=== PATIENT | male | born 2000 | race Caucasian/White ===

== ENCOUNTER → 2024-01-26 12:51 | Outpatient (REF) | payer BC, SELFPAY | LOC: RAD 12:51 | PROVIDERS: ATTENDING PHYSICIAN Radiology Diagnostic Radiology; FAMILY PHYSICIAN Family Medicine | DX: S62.111A Displaced fracture of triquetrum [cuneiform] bone, right wrist, initial encounter for closed fracture (principal); W19.XXXA Unspecified fall, initial encounter | CPT/HCPCS: 73110 ==

== ENCOUNTER → 2024-07-17 10:12 | Outpatient (REF) | payer BC, SELFPAY ==
[2024-07-17 11:18] LABS: % Basophils 0.8 % (0-2); % Eosinophils 1.1 % (0-6); % Immature Granulocytes 0.4 % (0-0.5); % Lymphocytes 28.1 % (20.5-51.1); % Monocytes 8.4 % (1.7-9.3); % Neutrophils 61.2 % (42.2-75.2); Absolute Eosinophils 0.1 10^3/uL (0-0.7); Absolute Lymphocytes 1.5 10^3/uL (1.2-3.4); Absolute Monocytes 0.4 10^3/uL (0.1-0.6); Absolute Neutrophils 3.2 10^3/uL (1.4-6.5); Hematocrit 46.4 % (39.0-52.0); Hemoglobin 15.7 g/dL (13.0-18.0); Mean Corp Hgb Conc. 33.8 g/dL (33.0-37.0); Mean Corpuscular Hgb 30.7 pg (27.0-31.0); Mean Corpuscular Volume 90.6 fL (80.0-94.0); Mean Platelet Volume 10.1 fL (7.4-10.4); Nucleated Red Blood Cells % 0 % (-); Platelet Count 240 10^3/uL (130-400); Red Blood Cell Count 5.12 10^6/uL (4.70-6.10); Red Cell Dist. Width 12.4 % (11.5-14.5); White Blood Cell Count 5.2 10^3/uL (4.8-10.8)
[2024-07-17 11:39] LABS: Microalbumin, Random Urine 9.9 mg/dl (0.6-1.7); Microalbumin/creatinine Ratio 39.2 mg/g
[2024-07-17 11:46] LABS: ALT (SGPT) 29 U/L (0-50); AST (SGOT) 28 U/L (17-59); Alkaline Phosphatase 54 U/L (38-126); Blood Urea Nitrogen 18 mg/dl (9-20); Calcium 9.9 mg/dl (8.4-10.2); Carbon Dioxide 28 mmol/L (22-30); Chloride 98 mmol/L (98-107); Glucose 172 mg/dl (70-99); HDL Cholesterol 80 mg/dl; LDL Cholesterol, Calculated 117 mg/dl; Potassium 4.9 mmol/L (3.5-5.1); Sodium 135 mmol/L (135-145); Total Bilirubin 3.1 mg/dl (0.2-1.3); Total Cholesterol 213 mg/dl (50-199); Total Protein 7.6 g/dl (6.3-8.2); Triglyceride 80 mg/dl (10-149); Very Low Density Lipoprotein 16 mg/dl (0-30); eGFR > 60.00
[2024-07-17 12:03] LABS: Vitamin D, 25-OH*** 46.5 ng/mL (30-80)
[2024-07-17 12:17] LABS: TSH Reflex To Free T4 1.47 uIU/ml (0.47-4.68)
[2024-07-19 05:13] LABS: IgA 388 mg/dl (70-400)
[2024-07-19 07:52] LABS: Endomysial IgA Antibody Titer <1:10 (<1:10)
== END ==
LOC: REG 10:12
PROVIDERS: ATTENDING PHYSICIAN Pediatrics Pediatric Endocrinology
DX: E10.65 Type 1 diabetes mellitus with hyperglycemia (principal)
CPT/HCPCS: 36415; 80053; 80061; 82043; 82306; 82570; 82784; 83516; 84443; 85025; 86231

== ENCOUNTER → 2024-07-27 09:34 | Outpatient (REF) | payer BC, SELFPAY ==
[2024-07-27 10:31] LABS: ALT (SGPT) 25 U/L (0-50); AST (SGOT) 27 U/L (17-59); Albumin 4.5 g/dl (3.5-5.0); Alkaline Phosphatase 50 U/L (38-126); Blood Urea Nitrogen 17 mg/dl (9-20); Calcium 9.2 mg/dl (8.4-10.2); Carbon Dioxide 32 mmol/L (22-30); Chloride 99 mmol/L (98-107); GGTP 14 U/L (15-73); Glucose 165 mg/dl (70-99); Potassium 4.9 mmol/L (3.5-5.1); Sodium 137 mmol/L (135-145); Total Bilirubin 2.7 mg/dl (0.2-1.3); Total Protein 6.7 g/dl (6.3-8.2); eGFR > 60.00
== END ==
LOC: REG 09:34
PROVIDERS: ATTENDING PHYSICIAN Pediatrics Pediatric Endocrinology
DX: E10.65 Type 1 diabetes mellitus with hyperglycemia (principal); E80.6 Other disorders of bilirubin metabolism
CPT/HCPCS: 36415; 80053; 82248; 82977

== ENCOUNTER → 2024-07-28 09:54 | Outpatient (REF) | payer BC, SELFPAY ==
[2024-07-28 11:53] LABS: Microalbumin, Random Urine 1.1 mg/dl (0.6-1.7); Microalbumin/creatinine Ratio 4.9 mg/g
== END ==
LOC: REG 09:54
PROVIDERS: ATTENDING PHYSICIAN Pediatrics Pediatric Endocrinology; FAMILY PHYSICIAN Family Medicine
DX: E10.65 Type 1 diabetes mellitus with hyperglycemia (principal)
CPT/HCPCS: 82043; 82570